=== PATIENT | male | born 1960 | race Caucasian/White ===

== ENCOUNTER 2022-01-03 08:28 | Day surgery (SDC) | payer BC ==
[~2022-01-03] VITALS: Ht 170.2 cm; Wt 71.7 kg
[~2022-01-03 08:28] MED LIST: CYCL10 PO; HYDACE5 PO; NAPR500 PO
[2022-01-03] MEDS ORDERED: IBUP200 (08:50)
[2022-01-03] MEDS ORDERED: ATOR10 (08:50)
== END 2022-01-03 11:01 | disposition home or self-care (01) ==
LOC: ORSCSDS 08:28
PROVIDERS: Internal Medicine Gastroenterology
PROC: 0DJD8ZZ Inspection of Lower Intestinal Tract, Via Natural or Artificial Opening Endoscopic (ICD-10-PCS; principal; 2022-01-03 09:45)
DX: Z12.11 Encounter for screening for malignant neoplasm of colon (principal); K64.8 Other hemorrhoids; K64.4 Residual hemorrhoidal skin tags; Z79.899 Other long term (current) drug therapy
CPT/HCPCS: J2704; J7120